=== PATIENT | female | born 1970 | race Caucasian/White ===

== ENCOUNTER → 2017-04-14 | Outpatient (CLI) | payer BC ==
--- NOTE | 2017-04-14 13:11 | REP ---
Clinical: Pain with recent trauma. Technique: AP, lateral, bilateral oblique views right foot. Findings: The osseous structures and joint spaces demonstrate age-related degenerative changes. There is no evidence for acute fracture or dislocation. Surrounding soft tissues are unremarkable. No subcutaneous emphysema or radiodense foreign body. Impression: No acute fracture or dislocation. Signed by Ken Ashraf MD 04/14/2017 01:03 P
== END ==
LOC: M ADAMS 12:32
PROVIDERS: ATTEND Physician Assistant
DX: M79.671 Pain in right foot (principal)

== ENCOUNTER 2020-02-01 11:57 | Emergency (ER) | payer BC ==
[~2020-02-01] VITALS: Ht 177.8 cm; Wt 128.9 kg
[2020-02-01] MEDS ORDERED: VALP1CAP2 PO (12:15)
[2020-02-01] MEDS ORDERED: ASPIRIN 81 MG CHEW TABLET PO ONE (12:30)
[2020-02-01] MEDS ORDERED: GI COCKTAIL 50ML BTL(HYOSCYAMINE/MAALOX/LIDOCAINE VISCOUS)(1:3:1) PO ONE (12:30)
--- NOTE | 2020-02-01 12:38 | REPVR ---
PROCEDURE INFORMATION: Exam: XR Chest, 1 View Exam date and time: 02/01/2020 12:20 PM Age: 49 years old Clinical indication: Chest pain; Type not specified TECHNIQUE: Imaging protocol: XR of the chest Views: 1 view. COMPARISON: No relevant prior studies available. FINDINGS: Tubes, catheters and devices: ECG leads/contacts overlie and partially obscure the anatomy. Lungs: No pulmonary consolidation or edema. Pleural space: No evident pleural effusion or pneumothorax. Heart/Mediastinum: Heart size is within normal limits given the portable technique. The mediastinal contours are within normal limits. Bones/joints: No acute osseous abnormality. Other findings: The patient is rotated. IMPRESSION: No radiographic evidence of acute cardiopulmonary disease. Electronically signed by: Genaro Champion On 02/01/2020 12:38:15 PM
[2020-02-01 12:43] LABS: BASO % 0.6 % (0.0-1.0); EOS # 0.2 10^3/uL (0.0-0.5); EOS % 3.2 % (0.0-3.0); HEMATOCRIT 42.8 % (36.0-47.0); HEMOGLOBIN 13.7 g/dl (12.0-15.5); LYMPH # 1.8 10^3/uL (1.5-5.0); LYMPH % 29.7 % (24.0-44.0); MEAN CORPUSCULAR HEMOGLOBIN 29.7 pg (27.0-33.0); MEAN CORPUSCULAR VOLUME 92.8 fl (80.0-96.0); MONO # 0.4 10^3/uL (0.0-0.8); MONO % 6.6 % (0.0-5.0); NEUTROPHILS # 3.7 10^3/uL (1.5-8.5); NEUTROPHILS % 59.4 % (36.0-66.0); PLATELET COUNT, AUTOMATED 178 10^3/uL (150-450); RED BLOOD COUNT 4.61 10^6/uL (4.00-5.40); WHITE BLOOD COUNT 6.2 10^3/uL (4.0-10.0)
[2020-02-01 12:55] LABS: INR 0.95; PROTHROMBIN TIME 12.8 SECONDS (11.8-14.0)
[2020-02-01 13:17] LABS: ALBUMIN 3.5 GM/DL (3.2-5.2); ALT/SGPT 39 U/L (12-78); BILIRUBIN,DIRECT < 0.1 MG/DL (0.0-0.2); BILIRUBIN,TOTAL 0.4 MG/DL (0.2-1.0); BLOOD UREA NITROGEN 13 MG/DL (7-18); CALCIUM LEVEL 9.1 MG/DL (8.5-10.1); CARBON DIOXIDE LEVEL 26 MEQ/L (21-32); CHLORIDE LEVEL 107 MEQ/L (98-107); CK-MB VALUE MASS < 1.0 NG/ML (<3.6); CPK CREATINE PHOSPHOKINASE 106 U/L (26-192); GLOMERULAR FILTRATION RATE > 60.0 (>51); GLUCOSE, FASTING 93 MG/DL (70-100); LIPASE 102 U/L (73-393); MB/CK RELATIVE INDEX 0.94 (< OR =4); NT-PRO BNP 212 PG/ML (<125); POTASSIUM SERUM 4.3 MEQ/L (3.5-5.1); SODIUM LEVEL 141 MEQ/L (136-145); TOTAL PROTEIN 7.3 GM/DL (6.4-8.2); TROPONIN I < 0.02 NG/ML (< 0.10)
[2020-02-01 17:12] VITALS: BP 130/68
--- NOTE | 2020-02-05 10:01 | ECGEPIP ---
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
--- NOTE | 2020-02-09 10:48 | ECGEPIP ---
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
== END 2020-02-01 17:19 | disposition home or self-care (01) ==
LOC: M ED 11:57
DX: R07.89 Other chest pain (principal); R00.1 Bradycardia, unspecified; I45.19 Other right bundle-branch block; Z79.899 Other long term (current) drug therapy; Z88.2 Allergy status to sulfonamides

== ENCOUNTER → 2020-03-11 | Outpatient (REF) | payer BC ==
[~2020-03-11] MED LIST: VALP1CAP2 PO
[2020-03-11 13:27] LABS: HEMOGLOBIN A1c 5.4 %
== END ==
LOC: M LABDRWAD 12:22
PROVIDERS: ATTEND Surgery
DX: Z86.39 Personal history of other endocrine, nutritional and metabolic disease (principal)

== ENCOUNTER → 2020-03-11 | Outpatient (REF) | payer BC ==
[2020-03-11 13:09] LABS: BASO % 0.5 % (0.0-1.0); EOS # 0.3 10^3/uL (0.0-0.5); EOS % 4.3 % (0.0-3.0); HEMATOCRIT 41.4 % (36.0-47.0); LYMPH # 1.8 10^3/uL (1.5-5.0); LYMPH % 28.5 % (24.0-44.0); MEAN CORPUSCULAR HEMOGLOBIN 29.1 pg (27.0-33.0); MEAN CORPUSCULAR HGB CONC 31.4 g/dl (32.0-36.5); MEAN CORPUSCULAR VOLUME 92.6 fl (80.0-96.0); MONO # 0.5 10^3/uL (0.0-0.8); MONO % 7.5 % (0.0-5.0); NEUTROPHILS # 3.7 10^3/uL (1.5-8.5); PLATELET COUNT, AUTOMATED 164 10^3/uL (150-450); RED BLOOD COUNT 4.47 10^6/uL (4.00-5.40); WHITE BLOOD COUNT 6.3 10^3/uL (4.0-10.0)
[2020-03-11 13:51] LABS: ALBUMIN 3.5 GM/DL (3.2-5.2); ALT/SGPT 39 U/L (12-78); BILIRUBIN,TOTAL 0.4 MG/DL (0.2-1.0); BLOOD UREA NITROGEN 13 MG/DL (7-18); CALCIUM LEVEL 9.1 MG/DL (8.5-10.1); CARBON DIOXIDE LEVEL 30 MEQ/L (21-32); CHLORIDE LEVEL 108 MEQ/L (98-107); CHOLESTEROL LEVEL 158 MG/DL (<200); CREATININE FOR GFR 0.81 MG/DL (0.55-1.30); FREE T4 0.96 NG/DL (0.76-1.46); GLOMERULAR FILTRATION RATE > 60.0 (>51); GLUCOSE, FASTING 88 MG/DL (70-100); HDL CHOLESTEROL 61 MG/DL (>40); LDL CHOLESTEROL 75 MG/DL (<100); NON-HDL-C 97 MG/DL; POTASSIUM SERUM 4.6 MEQ/L (3.5-5.1); SODIUM LEVEL 142 MEQ/L (136-145); TRIGLYCERIDES LEVEL 108 MG/DL (<150); VALPROIC ACID (DEPAKOTE) 20.9 UG/ML (50.0-100.0)
== END ==
LOC: M LABDRWAD 12:24
PROVIDERS: ATTEND Physician Assistant
DX: Z12.11 Encounter for screening for malignant neoplasm of colon (principal); E66.01 Morbid (severe) obesity due to excess calories; G43.009 Migraine without aura, not intractable, without status migrainosus; Z13.220 Encounter for screening for lipoid disorders

== ENCOUNTER → 2020-05-18 | Outpatient (CLI) | payer BC ==
[2020-05-18 12:39] LABS: BASO % 0.6 % (0.0-1.0); EOS # 0.1 10^3/uL (0.0-0.5); EOS % 2.5 % (0.0-3.0); HEMATOCRIT 40.7 % (36.0-47.0); HEMOGLOBIN 13.4 g/dl (12.0-15.5); LYMPH # 1.2 10^3/uL (1.5-5.0); LYMPH % 22.9 % (24.0-44.0); MEAN CORPUSCULAR HEMOGLOBIN 30.2 pg (27.0-33.0); MEAN CORPUSCULAR HGB CONC 32.9 g/dl (32.0-36.5); MEAN CORPUSCULAR VOLUME 91.9 fl (80.0-96.0); MONO # 0.5 10^3/uL (0.0-0.8); MONO % 8.9 % (0.0-5.0); NEUTROPHILS # 3.4 10^3/uL (1.5-8.5); NEUTROPHILS % 64.9 % (36.0-66.0); PLATELET COUNT, AUTOMATED 124 10^3/uL (150-450); RED BLOOD COUNT 4.43 10^6/uL (4.00-5.40); WHITE BLOOD COUNT 5.2 10^3/uL (4.0-10.0)
[2020-05-18 12:42] LABS: HEMATOCRIT 40.7 % (36.0-47.0)
[2020-05-18 13:07] LABS: ALBUMIN 3.2 GM/DL (3.2-5.2); ALT/SGPT 34 U/L (12-78); BILIRUBIN,TOTAL 0.4 MG/DL (0.2-1.0); BLOOD UREA NITROGEN 5 MG/DL (7-18); CALCIUM LEVEL 8.3 MG/DL (8.5-10.1); CARBON DIOXIDE LEVEL 28 MEQ/L (21-32); CHLORIDE LEVEL 103 MEQ/L (98-107); CREATININE FOR GFR 0.55 MG/DL (0.55-1.30); FERRITIN 200 NG/ML (8-252); GLOMERULAR FILTRATION RATE > 60.0 (>51); GLUCOSE, FASTING 73 MG/DL (70-100); IRON (FE) 78 UG/DL (50-170); MAGNESIUM LEVEL 1.8 MG/DL (1.8-2.4); PHOSPHORUS LEVEL 2.8 MG/DL (2.5-4.9); POTASSIUM SERUM 3.9 MEQ/L (3.5-5.1); SODIUM LEVEL 140 MEQ/L (136-145); TOTAL PROTEIN 6.2 GM/DL (6.4-8.2)
[2020-05-18 13:12] LABS: TOTAL 25(OH) VITAMIN D 28.8 NG/ML (30.0-100.0); VITAMIN B12 LEVEL 1720 PG/ML (247-911)
== END ==
LOC: M LABDRWAD 10:34
PROVIDERS: ATTEND Surgery
DX: K91.2 Postsurgical malabsorption, not elsewhere classified (principal); E55.9 Vitamin D deficiency, unspecified; Z98.84 Bariatric surgery status

== ENCOUNTER → 2021-03-24 | Outpatient (REF) | payer BC ==
[2021-03-24 13:37] LABS: BASO % 1.2 % (0.0-1.0); EOS # 0.1 10^3/uL (0.0-0.5); EOS % 2.3 % (0.0-3.0); HEMATOCRIT 44.4 % (36.0-47.0); HEMOGLOBIN 14.2 g/dl (12.0-15.5); LYMPH # 0.9 10^3/uL (1.5-5.0); LYMPH % 26.5 % (24.0-44.0); MEAN CORPUSCULAR VOLUME 93.7 fl (80.0-96.0); MONO # 0.4 10^3/uL (0.0-0.8); MONO % 10.5 % (2.0-8.0); NEUTROPHILS % 59.2 % (36.0-66.0); PLATELET COUNT, AUTOMATED 137 10^3/uL (150-450); RED BLOOD COUNT 4.74 10^6/uL (4.00-5.40); WHITE BLOOD COUNT 3.4 10^3/uL (4.0-10.0)
[2021-03-24 14:12] LABS: ALBUMIN 3.5 GM/DL (3.2-5.2); ALT/SGPT 29 U/L (12-78); BILIRUBIN,TOTAL 0.5 MG/DL (0.2-1.0); BLOOD UREA NITROGEN 9 MG/DL (7-18); CALCIUM LEVEL 9.4 MG/DL (8.5-10.1); CARBON DIOXIDE LEVEL 29 MEQ/L (21-32); CHLORIDE LEVEL 106 MEQ/L (98-107); CHOLESTEROL LEVEL 136 MG/DL (<200); CHOLESTEROL RISK RATIO 2.158 (<5); CREATININE FOR GFR 0.72 MG/DL (0.55-1.30); FREE T4 0.98 NG/DL (0.76-1.46); GLOMERULAR FILTRATION RATE > 60.0 (>51); GLUCOSE, FASTING 81 MG/DL (70-100); HDL CHOLESTEROL 63 MG/DL (>40); IRON (FE) 86 UG/DL (50-170); LDL CHOLESTEROL 55 MG/DL (<100); NON-HDL-C 73 MG/DL; POTASSIUM SERUM 4.2 MEQ/L (3.5-5.1); SODIUM LEVEL 142 MEQ/L (136-145); TOTAL 25(OH) VITAMIN D 35.5 NG/ML (30.0-100.0); TOTAL PROTEIN 6.8 GM/DL (6.4-8.2); TRIGLYCERIDES LEVEL 92 MG/DL (<150); VITAMIN B12 LEVEL 1708 PG/ML (247-911)
== END ==
LOC: M LABDRWAD 12:23
PROVIDERS: ATTEND Family Medicine
DX: Z13.220 Encounter for screening for lipoid disorders (principal); Z98.84 Bariatric surgery status; Z13.29 Encounter for screening for other suspected endocrine disorder

== ENCOUNTER → 2021-03-24 | Outpatient (REF) | payer BC ==
[2021-03-24 13:31] LABS: BASO % 0.8 % (0.0-1.0); EOS # 0.1 10^3/uL (0.0-0.5); EOS % 2.5 % (0.0-3.0); HEMATOCRIT 43.7 % (36.0-47.0); LYMPH % 27.1 % (24.0-44.0); MEAN CORPUSCULAR HEMOGLOBIN 29.9 pg (27.0-33.0); MEAN CORPUSCULAR VOLUME 93.4 fl (80.0-96.0); MONO # 0.4 10^3/uL (0.0-0.8); MONO % 10.4 % (2.0-8.0); NEUTROPHILS # 2.2 10^3/uL (1.5-8.5); NEUTROPHILS % 58.9 % (36.0-66.0); PLATELET COUNT, AUTOMATED 138 10^3/uL (150-450); RED BLOOD COUNT 4.68 10^6/uL (4.00-5.40); WHITE BLOOD COUNT 3.7 10^3/uL (4.0-10.0)
[2021-03-24 13:41] LABS: HEMATOCRIT 44.4 % (36.0-47.0)
[2021-03-24 14:01] LABS: ALBUMIN 3.4 GM/DL (3.2-5.2); ALT/SGPT 28 U/L (12-78); BILIRUBIN,TOTAL 0.5 MG/DL (0.2-1.0); BLOOD UREA NITROGEN 8 MG/DL (7-18); CALCIUM LEVEL 9.2 MG/DL (8.5-10.1); CARBON DIOXIDE LEVEL 30 MEQ/L (21-32); CHLORIDE LEVEL 107 MEQ/L (98-107); FERRITIN 169 NG/ML (8-252); GLOMERULAR FILTRATION RATE > 60.0 (>51); GLUCOSE, FASTING 79 MG/DL (70-100); IRON (FE) 85 UG/DL (50-170); MAGNESIUM LEVEL 1.8 MG/DL (1.8-2.4); PHOSPHORUS LEVEL 3.3 MG/DL (2.5-4.9); POTASSIUM SERUM 4.2 MEQ/L (3.5-5.1); SODIUM LEVEL 142 MEQ/L (136-145); TOTAL IRON BINDING CAPACITY 266 UG/DL (250-450); TOTAL PROTEIN 6.5 GM/DL (6.4-8.2)
[2021-03-24 14:05] LABS: TOTAL 25(OH) VITAMIN D 33.6 NG/ML (30.0-100.0); VITAMIN B12 LEVEL 1520 PG/ML (247-911)
== END ==
LOC: M LABDRWAD 12:21
PROVIDERS: ATTEND Surgery
DX: K91.2 Postsurgical malabsorption, not elsewhere classified (principal); Z98.84 Bariatric surgery status; E55.9 Vitamin D deficiency, unspecified; Z86.39 Personal history of other endocrine, nutritional and metabolic disease

== ENCOUNTER 2021-09-07 07:26 | Day surgery (SDC) | payer BC ==
[~2021-09-07] VITALS: Ht 177.8 cm; Wt 89.1 kg
[~2021-09-07 07:26] MED LIST changes: +LIDOCAINE 2% 100MG/5ML SDV (FOR ANES.) As Ordered ONE; +NS 1,000 ML IV ONE; +VITMTA PO; +propofoL 200 MG/20 ML VIAL As Ordered ONE
[2021-09-07 09:07] VITALS: BP 114/58
== END 2021-09-07 09:11 | disposition home or self-care (01) ==
LOC: M OPP 07:26
PROVIDERS: ATTEND Surgery
DX: Z12.11 Encounter for screening for malignant neoplasm of colon (principal); Z80.0 Family history of malignant neoplasm of digestive organs; Z98.84 Bariatric surgery status; Z79.899 Other long term (current) drug therapy; Z88.0 Allergy status to penicillin; Z88.2 Allergy status to sulfonamides; Z91.018 Allergy to other foods; Z91.040 Latex allergy status

== ENCOUNTER → 2022-07-23 | Outpatient (CLI) | payer BC ==
[~2022-07-23] MED LIST changes: -LIDOCAINE 2% 100MG/5ML SDV (FOR ANES.) As Ordered ONE; -NS 1,000 ML IV ONE; -propofoL 200 MG/20 ML VIAL As Ordered ONE
== END ==
LOC: M ADAMS 08:09
PROVIDERS: ATTEND Family Medicine
DX: M75.32 Calcific tendinitis of left shoulder (principal)

== ENCOUNTER → 2022-07-23 | Outpatient (CLI) | payer BC ==
[2022-07-23 13:36] LABS: BASO % 0.7 % (0.0-1.0); EOS # 0.2 10^3/uL (0.0-0.5); EOS % 4.1 % (0.0-3.0); HEMOGLOBIN 13.2 g/dl (12.0-15.5); LYMPH # 2.1 10^3/uL (1.5-5.0); LYMPH % 36.3 % (24.0-44.0); MEAN CORPUSCULAR HEMOGLOBIN 30.3 pg (27.0-33.0); MEAN CORPUSCULAR HGB CONC 31.4 g/dl (32.0-36.5); MEAN CORPUSCULAR VOLUME 96.3 fl (80.0-96.0); MONO # 0.4 10^3/uL (0.0-0.8); MONO % 6.6 % (2.0-8.0); NEUTROPHILS # 2.9 10^3/uL (1.5-8.5); NEUTROPHILS % 52.1 % (36.0-66.0); PLATELET COUNT, AUTOMATED 173 10^3/uL (150-450); RED BLOOD COUNT 4.36 10^6/uL (4.00-5.40); WHITE BLOOD COUNT 5.6 10^3/uL (4.0-10.0)
[2022-07-23 14:25] LABS: VALPROIC ACID (DEPAKOTE) 34.5 UG/ML (50.0-100.0)
[2022-07-23 16:15] LABS: ALBUMIN 3.5 G/DL (3.2-5.2); ALKALINE PHOSPHATASE 104 U/L (46-116); ALT/SGPT 21 U/L (7.0-40); AST/SGOT 18 U/L (<34); BILIRUBIN,TOTAL 0.7 MG/DL (0.3-1.2); BLOOD UREA NITROGEN 11 MG/DL (9-23); CALCIUM LEVEL 9.1 MG/DL (8.5-10.1); CARBON DIOXIDE LEVEL 30 MMOL/L (20-31); CHLORIDE LEVEL 105 MMOL/L (98-107); CHOLESTEROL LEVEL 140 MG/DL (<200); CHOLESTEROL RISK RATIO 1.93 (<5); CREATININE FOR GFR 0.68 MG/DL (0.55-1.30); FREE T4 1.02 NG/DL (0.89-1.76); GLOMERULAR FILTRATION RATE > 60.0 (>51); GLUCOSE, FASTING 88 MG/DL (60-100); HDL CHOLESTEROL 72.4 MG/DL (>40); LDL CHOLESTEROL 50.6 MG/DL (<100); NON-HDL-C 68 MG/DL; POTASSIUM SERUM 4.4 MMOL/L (3.5-5.1); SODIUM LEVEL 142 MMOL/L (136-145); THYROID STIMULATING HORMONE 1.428 uIU/ML (0.55-4.78); TOTAL 25(OH) VITAMIN D 26.8 NG/ML (20.0-100.0); TOTAL PROTEIN 6.5 G/DL (5.7-8.2); TRIGLYCERIDES LEVEL 85 MG/DL (<150); VITAMIN B12 LEVEL 713 PG/ML (211-911)
== END ==
LOC: M LABDRWAD 08:05
PROVIDERS: ATTEND Family Medicine
DX: Z13.29 Encounter for screening for other suspected endocrine disorder (principal); Z98.84 Bariatric surgery status; G43.009 Migraine without aura, not intractable, without status migrainosus; Z13.0 Encounter for screening for diseases of the blood and blood-forming organs and certain disorders involving the immune mechanism; Z13.220 Encounter for screening for lipoid disorders

== ENCOUNTER → 2023-06-25 | Outpatient (REF) | payer BC ==
[2023-06-25 14:07] LABS: BASO % 0.7 % (0.0-1.0); EOS # 0.2 10^3/uL (0.0-0.5); EOS % 3.1 % (0.0-3.0); HEMATOCRIT 42.1 % (36.0-47.0); HEMOGLOBIN 13.6 g/dl (12.0-15.5); LYMPH % 36.9 % (24.0-44.0); MEAN CORPUSCULAR HEMOGLOBIN 30.6 pg (27.0-33.0); MEAN CORPUSCULAR HGB CONC 32.3 g/dl (32.0-36.5); MEAN CORPUSCULAR VOLUME 94.6 fl (80.0-96.0); MONO # 0.5 10^3/uL (0.0-0.8); MONO % 8.7 % (2.0-8.0); NEUTROPHILS # 2.7 10^3/uL (1.5-8.5); NEUTROPHILS % 50.4 % (36.0-66.0); PLATELET COUNT, AUTOMATED 183 10^3/uL (150-450); RED BLOOD COUNT 4.45 10^6/uL (4.00-5.40); WHITE BLOOD COUNT 5.4 10^3/uL (4.0-10.0)
[2023-06-25 14:15] LABS: THYROID STIMULATING HORMONE 2.772 uIU/ML (0.55-4.78); TOTAL 25(OH) VITAMIN D 34.7 NG/ML (20.0-100.0); VALPROIC ACID (DEPAKOTE) 25.2 UG/ML (50.0-100.0)
[2023-06-25 14:16] LABS: VITAMIN B12 LEVEL 777 PG/ML (211-911)
[2023-06-25 14:17] LABS: ALBUMIN 3.5 G/DL (3.2-5.2); ALKALINE PHOSPHATASE 98 U/L (46-116); ALT/SGPT 22 U/L (7.0-40); AST/SGOT 16 U/L (<34); BILIRUBIN,TOTAL 0.5 MG/DL (0.3-1.2); BLOOD UREA NITROGEN 12 MG/DL (9-23); CALCIUM LEVEL 9.2 MG/DL (8.5-10.1); CARBON DIOXIDE LEVEL 30 MMOL/L (20-31); CHLORIDE LEVEL 107 MMOL/L (98-107); CHOLESTEROL LEVEL 153 MG/DL (<200); CHOLESTEROL RISK RATIO 1.94 (<5); CREATININE FOR GFR 0.63 MG/DL (0.55-1.30); FREE T4 1.15 NG/DL (0.89-1.76); GLOMERULAR FILTRATION RATE > 60.0 (>51); GLUCOSE, FASTING 84 MG/DL (60-100); HDL CHOLESTEROL 78.7 MG/DL (>40); LDL CHOLESTEROL 59.1 MG/DL (<100); NON-HDL-C 74.3 MG/DL; POTASSIUM SERUM 3.8 MMOL/L (3.5-5.1); SODIUM LEVEL 142 MMOL/L (136-145); TOTAL PROTEIN 6.5 G/DL (5.7-8.2); TRIGLYCERIDES LEVEL 76 MG/DL (<150)
== END ==
LOC: M LABDRWAD 13:12
PROVIDERS: ATTEND Family Medicine
DX: Z13.29 Encounter for screening for other suspected endocrine disorder (principal); Z13.0 Encounter for screening for diseases of the blood and blood-forming organs and certain disorders involving the immune mechanism; Z98.84 Bariatric surgery status; G43.009 Migraine without aura, not intractable, without status migrainosus

== ENCOUNTER → 2023-10-21 | Outpatient (CLI) | payer BC | LOC: M ADAMS 14:41 | PROVIDERS: ATTEND Family Medicine | DX: M25.561 Pain in right knee (principal); M17.11 Unilateral primary osteoarthritis, right knee ==

== ENCOUNTER → 2023-10-29 | Outpatient (CLI) | payer BC | LOC: M ADAMS 08:32 | PROVIDERS: ATTEND Family Medicine | DX: M70.22 Olecranon bursitis, left elbow (principal) ==